=== PATIENT | male | born 1980 | race Two or more races ===

== ENCOUNTER 2024-08-17 18:01 | Emergency (ER) | payer SELFPAY ==
[~2024-08-17] VITALS: Ht 175.3 cm; Wt 65.0 kg
[2024-08-17 18:05] VITALS: O2SAT 99
[2024-08-17] MEDS: ONDANSETRON HCL 4MG/2ML INJ IV STA (18:09)
[2024-08-17 18:35] LABS: BG BASE EXCESS 1.2 mmol/L (-2.0-3.0); BG CARBOXYHEMOGLOBIN 0.2 % (0.5-1.5); BG DEOXYHEMOGLOBIN 7.3 % (0.0-5.0); BG FRACTION INSPIRED OXYGEN 21; BG HCO3 ACT 26.4 mmol/L (21.0-28.0); BG METHEMOGLOBIN 0.2 % (0.5-1.5); BG OXYGEN SATURATION 92.7 % (94.0-98.0); BG OXYHEMOGLOBIN 92.3 % (94.0-98.0); BG PH 7.396 (7.350-7.450); BG PO2 67.2 mmHg (83.0-108.0); BG SAMPLE SITE RIGHT RADIAL; BG TOTAL HEMOGLOBIN 15.1 g/dL (13.5-17.5); BG VENT MODE ROOM AIR
[2024-08-17 19:41] LABS: BASOPHILS % 0.8 % (0.0-2.0); HEMATOCRIT. 44.5 % (42.0-52.0); HEMOGLOBIN. 14.4 g/dL (14.0-18.0); LYMPHOCYTES % 21.3 % (20.0-50.0); MEAN CORPUSCULAR HGB CONC 32.3 g/dL (31.0-37.0); MEAN CORPUSCULAR VOLUME 89.9 fL (80.0-94.0); MEAN PLATELET VOLUME 7.4 fl (7.4-10.4); MONOCYTES % 8.9 % (2.0-8.0); PLATELET 296 x1000/uL (130-400); RED BLOOD CELL COUNT 4.94 mill/uL (4.7-6.1); RED CELL DISTRIBUTION WIDTH 14.6 % (11.6-14.6); WHITE BLOOD COUNT 8.2 x1000/uL (4.5-11.0)
[2024-08-17 19:44] LABS: CHLORIDE 109 mEq/L (98-107); POTASSIUM 3.6 mEq/L (3.5-5.1); SODIUM 143 mEq/L (136-145)
[2024-08-17 19:45] LABS: CALCIUM 9.2 mg/dL (8.7-10.4); CARBON DIOXIDE 28 mEq/L (21-32)
[2024-08-17 19:50] LABS: GLUCOSE 95 mg/dL (70-105); PROTHROMBIN TIME 10.8 sec (9.6-11.0); UREA NITROGEN BLOOD 11 mg/dL (9-23)
[2024-08-17 19:52] LABS: TROPONIN I HIGH SENSITIVITY 9 ng/L (3.0-53)
[2024-08-17 19:55] LABS: ETHANOL BLOOD < 10 mg/dL (<10)
[2024-08-17] MEDS ORDERED: NALO4SPR BOTHNSTRLS (21:49)
[2024-08-17 21:59] VITALS: BP 141/89; PULSE 83; RESP 13; TEMP 36.66960; O2SAT 100
== END 2024-08-17 22:02 ==
LOC: ER 18:01
DX: T50.7X1A Poisoning by analeptics and opioid receptor antagonists, accidental (unintentional), initial encounter (principal); F15.10 Other stimulant abuse, uncomplicated; F11.10 Opioid abuse, uncomplicated; I49.9 Cardiac arrhythmia, unspecified; Z98.890 Other specified postprocedural states; Y92.9 Unspecified place or not applicable
CPT/HCPCS: 80048; 80320; 85025; 85610; 84484; 36415; 71045; 82805; 82375; 93005; 99285; 36600; Z7610; G0480